=== PATIENT | female | born 1960 | race Caucasian/White ===

== ENCOUNTER 2019-03-05 07:53 | Day surgery (SDC) | payer OTHER ==
[2019-03-05] MEDS ORDERED: CEFAZOLIN 1 GM INJ (11:36)
[2019-03-05] MEDS ORDERED: METOCLOPRAMIDE 10 MG INJ (11:36)
[2019-03-05] MEDS ORDERED: PROPOFOL 20 ML (11:36)
[2019-03-05] MEDS ORDERED: ONDANSETRON 4 MG INJ (11:36)
[2019-03-05] MEDS ORDERED: LIDOCAINE 2% (SDV) 5 ML INJ (11:36)
[2019-03-05] MEDS: BUPIVACAINE 0.25% (MPF) 30 ML INJ (12:22)
[2019-03-05] MEDS ORDERED: EPHEDrine 25 MG/5 ML SYG IV (12:30)
[2019-03-05] MEDS ORDERED: OXYCODONE/ACETAMINOPHEN (5/325) TAB PO ×2 (12:30)
[2019-03-05] MEDS ORDERED: DIPHENHYDRAMINE 50 MG INJ IV (12:30)
[2019-03-05] MEDS ORDERED: LABETALOL HCL 20MG INJ IV (12:30)
[2019-03-05] MEDS ORDERED: METOCLOPRAMIDE 10 MG INJ IV (12:30)
[2019-03-05] MEDS ORDERED: FENTAnyl 50 MCG/ML VIAL IV ×3 (12:30)
[2019-03-05] MEDS ORDERED: hydrALAzine 20 MG INJ IV (12:30)
[2019-03-05] MEDS ORDERED: MIDAZOLAM 1 MG/ML 2 ML INJ IV (12:30)
[2019-03-05] MEDS: ONDANSETRON 4 MG INJ IV (12:37)
[2019-03-05] MEDS: MEPERIDINE 25 MG INJ IV (12:37)
[2019-03-05] MEDS: HYDROCODONE/APAP (5/325) TAB PO (12:49)
== END 2019-03-05 13:27 | disposition home or self-care (01) ==
LOC: SDS 07:53
DX: N60.81 Other benign mammary dysplasias of right breast (principal); I10 Essential (primary) hypertension; E03.9 Hypothyroidism, unspecified
CPT/HCPCS: 14000; 88307